=== PATIENT | female | born 1955 | race Asian ===

== ENCOUNTER → 2018-07-11 | Outpatient (CLI) | payer OTHER | END | disposition home or self-care (01) | LOC: RADPV 13:50 | PROVIDERS: ATTEND Legal Medicine | DX: M19.071 Primary osteoarthritis, right ankle and foot (principal); M77.31 Calcaneal spur, right foot; M19.072 Primary osteoarthritis, left ankle and foot; M77.32 Calcaneal spur, left foot ==

== ENCOUNTER → 2023-05-29 | Outpatient (CLI) | payer MEDICARE, OTHER | END | disposition home or self-care (01) | LOC: RADMN 14:15 | PROVIDERS: ATTEND Legal Medicine | DX: I69.30 Unspecified sequelae of cerebral infarction (principal) | CPT/HCPCS: 70551 ==

== ENCOUNTER → 2023-06-01 | Outpatient (CLI) | payer MEDICARE, OTHER ==
[~2023-06-01] MED LIST: GADOTERATE MEGLUMINE 10 MMOL/20 ML VIAL IVP ONE
== END | disposition home or self-care (01) ==
LOC: RADMN 08:48
PROVIDERS: ATTEND Legal Medicine
DX: D49.7 Neoplasm of unspecified behavior of endocrine glands and other parts of nervous system (principal); I63.89 Other cerebral infarction
CPT/HCPCS: 70552; A9575

== ENCOUNTER → 2024-02-23 | Outpatient (CLI) | payer MEDICARE, OTHER | END | disposition home or self-care (01) | LOC: RADMN 09:26 | PROVIDERS: ATTEND Legal Medicine | DX: I63.9 Cerebral infarction, unspecified (principal); D35.2 Benign neoplasm of pituitary gland | CPT/HCPCS: 70553 ==